=== PATIENT | female | born 2000 | race Caucasian/White ===

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

== ENCOUNTER 2022-10-28 20:46 | Emergency (ER) | payer OTHER, SELFPAY ==
[2022-10-28 20:48] VITALS: BP 103/80; PULSE 95; RESP 16; TEMP 36.1; BMI 31.9
[2022-10-28 20:50] VITALS: BP 103/80; PULSE 95; RESP 16; TEMP 36.1
--- NOTE | 2022-10-28 22:43 | EDS_ITS ---
HPI History of Present Illness Chief Complaint: Lower Extremity Injury [facility] Medical History (Updated 10/29/22 @ 00:[address] True Jaramillo, DO) Depression Home Medications ondansetron 4 mg disintegrating tablet 8 mg (2 x 4 mg) PO Q8H PRN PRN Nausea #6 tabs 04/08/20 [Rx Last Taken Unknown] Allergy/AdvReac Type Severity Reaction Status Date / Time No Known Allergies Allergy Verified 10/28/22 20:51 Social History Smoking Status: Never smoker EXAM Physical Exam Const Vital Signs: 10/28/22 20:48 10/28/22 20:50 Temperature 96.9 F L 96.9 F L Temperature Source Temporal Temporal Pulse Rate 95 95 Respiratory Rate 16 16 Blood Pressure 103/80 103/80 Blood Pressure Mean 87 87 MDM MDM MDM Narrative Medical decision making narrative: HISTORY OF PRESENT ILLNESS: 22-year-old female with 1 week of bilateral leg pain in bilateral ankles and knees. She states she recently started playing rugby for the first time. No history of playing other athletic sports. States she has had rugby practice 3 times a week and games on the weekends. She states since she started this she is noticed increasing pain and soreness in bilateral ankles and knees that is exacerbated by playing rugby and improved by rest. Patient denies active cancer, being bedridden for greater than 3 days, denies unilateral leg swelling, denies any varicose veins, denies any calf tenderness, denies tenderness along d eep venous system. Denies major surgery within 12 weeks, recent paralysis, previous DVT. REVIEW OF SYSTEMS: Pertinent positives: Leg pain, leg swelling Pertinent negatives: Numbness, tingling, loss of sensation PHYSICAL EXAM: Nursing triage notes reviewed, Vital signs reviewed Constitutional: please see mdm HENT: MMM Eyes: Pupils equal round and reactive to light, Extraocular muscles intact Neck: No stridor, no JVD, full neck ROM Lungs: Clear to auscultation, No wheezing or rales. No increased work of breathing, no conversational dyspnea, no accessory muscle use, no nasal flaring. No respiratory distress noted Heart: Regular rate and rhythm, No murmurs, No rubs and No gallops, 2+ distal pulses (radial, femoral, posterior tibial) in all extremities Abdomen: Soft, there is no tenderness, rigidity, rebound or guarding, no obvious peritoneal signs, no palpable pulsatile abdominal masses, no auscultated abdominal bruit : No CVAT Extremities: No edema compartments are soft, no calf tenderness, extremities are warm and well-perfused. There is intact plantar and dorsiflexion of the ankle intact ligamentous structures of bilateral ankles. Intact knee flexion extension. Intact quadriceps tendon complex. Intact ligamentous structures of bilateral knees. Neuro: Intact sensation L1-S1 dermatomal distributions. Intact 5/5 strength in hip flexion (T12-L3). Knee extension (L2-L4). Ankle dorsiflexion (L4-L5). Ankle plantar flexion (S1). Great toe extension (L5). 2+ patellar and Achilles DTRs. Skin: No rash or lesions noted MEDICAL DECISION MAKING: Chief Complaint: Bilateral leg pain History obtained from others: The patient significant other ALL IMAGES (IF OBTAINED) HAVE BEEN PERSONALLY REVIEWED AND INTERPRETED BY MYSELF. MDM Narrative: Was hemodynamically stable, afebrile, nontoxic-appearing. I suspect her presentation today secondary to delayed onset muscle soreness and inflammation secondary to new athletic endeavor. I recommended NSAIDs, icing, decrease physical activity and outpatient follow-up. No evidence today of DVT, arterial occlusion, compartment syndrome, necrotizing fasciitis or other infectious etiology such as septic arthritis. The patient and/or family, caregivers express understanding. The patient and/or family, caregivers agrees with the plan. Shared decision making: I will have a discussion with the patient and or visitors regarding risk/benefits of further testing or admission. They will be made aware of of the risk/benefits inherent in this decision they will be given the opportunity to voice understanding. Total critical care time today provided was at least 0 minutes. This excludes separately billable procedures. Critical care time (if documented) is secondary to the patient having high probability of clinically significant/life threatening deterioration in the patient's condition which required my urgent intervention. Impression: 1. Delayed onset muscle soreness 2. Over use injury Dispo: Discharge Discharge Plan Triage Chief Complaint: Lower Extremity Injury ED Provider: True Jaramillo Dx/Rx/DC Orders Instructions: ED Knee Pain of Uncertain Cause Prescriptions: No Action ondansetron 4 MG tablet 8 mg PO Q8H PRN PRN (Reason: Nausea) Qty: 6 0RF Primary Care Provider: Tam Jimenez Referrals: Tam Jimenez MD [Primary Care Provider] - Lester Schilling MD [Med Staff - [facility]] - Activity Restrictions/Additional Instructions: Thank you for trusting us with your care today! Please take Tylenol (2 pills, 650 mg), ibuprofen (2 pills, 400 mg) every 6 hours as needed for pain and fever control. Please decrease activity until complete recovery in terms of pain and range of motion. Please return to the emergency department if your symptoms change or worsen. Please follow with your primary care physician for further outpatient evaluation and management. Disposition Disposition: Home, Self Care Discharge Date/Time: 10/28/22 23:26
== END 2022-10-28 23:26 | disposition home or self-care (01) ==
PROVIDERS: Emergency Provider Emergency Medicine; PCP Pediatrics; Visit Provider Emergency Medicine
DX: M70.861 Other soft tissue disorders related to use, overuse and pressure, right lower leg (principal); M70.862 Other soft tissue disorders related to use, overuse and pressure, left lower leg; M70.871 Other soft tissue disorders related to use, overuse and pressure, right ankle and foot; M70.872 Other soft tissue disorders related to use, overuse and pressure, left ankle and foot; X50.9XXA Other and unspecified overexertion or strenuous movements or postures, initial encounter; Y93.63 Activity, rugby
CPT/HCPCS: 99282